=== PATIENT | female | born 1980 | race Caucasian/White ===

== ENCOUNTER → 2017-11-20 | Outpatient (CLI) | payer BC | LOC: FIMAGING 11:08 | PROVIDERS: ATTEND Physician Assistant Medical | DX: Z13.89 Encounter for screening for other disorder (principal) ==

== ENCOUNTER → 2017-12-11 | Outpatient (CLI) | payer BC | LOC: FIMAGING 10:41 | PROVIDERS: ATTEND Physician Assistant Medical | DX: N28.89 Other specified disorders of kidney and ureter (principal) ==